=== PATIENT | female | born 1985 | race Hispanic/Latino ===

== ENCOUNTER 2021-09-14 06:49 | Emergency (ER) | payer OTHER ==
[~2021-09-14] VITALS: Ht 154.9 cm; Wt 90.7 kg
[2021-09-14] MEDS ORDERED: PENICILLIN G BENZATHINE LA 1.2 MU TBX IM STA (07:45)
[2021-09-14] MEDS ORDERED: GUAIFEN-CODEINE10 ML PO (07:53)
== END 2021-09-14 08:31 | disposition home or self-care (01) ==
LOC: FSED 07:15
DX: J02.0 Streptococcal pharyngitis (principal)
CPT/HCPCS: 83518; 87400; 99282; J0561